=== PATIENT | male | born 1945 | race Caucasian/White ===

== ENCOUNTER 2018-09-21 13:23 | Emergency (ER) | payer MEDICARE ==
[~2018-09-21] VITALS: Ht 172.7 cm; Wt 68.2 kg
[2018-09-21 13:48] VITALS: Ht 172.7 cm; Wt 68.2 kg
--- NOTE | 2018-09-21 13:50 | ERD ---
ER Documentation Chief Complaint Chief Complaint fainted HPI The patient is a 73-year-old male, presenting to the ER because he fainted at the [facility], witnessed by people surrounding him. When EMS arrived, blood pressure was low, he was treated with 1 L normal saline, blood pressure improved and his mentation also improved. Accu-Chek was 156 per EMS. He did not remember what happened. He denies headache, neck pain, chest pain, dyspnea, abdominal pain, vomiting, dysuria, diarrhea. He used to smoke until 2 years ago. He use oxygen at home in the evening as needed Past medical history: Probable COPD and hypertension and BPH. He is not clear about his medical problems Past surgical history: He did not remember Social history/review of system: Limited due to his condition Medications Home Meds Reported Medications Albuterol Sulfate* (Ventolin HFA*) 18 Gm Hfa.aer.ad, 2 PUFF INHALATION Q4H, #1 INHALER 09/21/18 Ipratropium-Albuterol (Ipratropium-Albuterol) 0.5-3 Mg/3 Ml Ampul.neb, 3 ML INHALATION Q6, #30 VIAL 09/21/18 Ondansetron Hcl* (Zofran*) 4 Mg Tab, 4 MG PO NEEDED PRN for NAUSEA AND OR VOMITING, TAB 09/21/18 Prednisone* (Prednisone*) 10 Mg Tab, 10 MG PO DAILY, TAB 09/21/18 Amlodipine Besylate* (Norvasc*) 5 Mg Tablet, 5 MG PO BID, TAB 09/21/18 Valsartan* (Diovan*) 320 Mg Tablet, 320 MG PO DAILY, TAB 09/21/18 Tamsulosin Hcl* (Flomax*) 0.4 Mg Cap.er.24h, 0.8 MG PO HS, CAP 09/21/18 Dutasteride* (Avodart*) 0.5 Mg Capsule, 0.5 MG PO DAILY, CAP 09/21/18 Aspirin* (Aspirin* EC) 81 Mg Tablet.dr, 81 MG PO DAILY, TAB 09/21/18 Carvedilol* (Carvedilol*) 12.5 Mg Tablet, 6.25 MG PO DAILY, #60 TAB 09/21/18 Allergies Allergies: Coded Allergies: No Known Allergy (Unverified , 09/21/18) Physical Exam Vitals Vital Signs Date Temp Pulse Resp B/P (MAP) Pulse Ox O2 O2 Flow FiO2 Time Delivery Rate 09/21/18 98.7 80 18 111/65 98 13:48 (80) Physical Exam Const: No acute distress. Head: Atraumatic. Eyes: Normal Conjunctiva. ENT: Normal External Ears, Nose and Mouth. Neck: Full range of motion. No meningismus. Resp: Clear to auscultation bilaterally. Cardio: Regular rate and rhythm. Abd: Soft, non distended, normal bowel sounds, non tender. Skin: No petechiae or rashes. Back: No midline or flank tenderness. Ext: No cyanosis, or edema. Neur: Awake and alert. No focal deficit Psych: Normal Mood and Affect. Result Diagram: 09/21/18 1436 09/21/18 1438 Results 24 hrs Laboratory Tests Test 09/21/18 14:06 09/21/18 14:36 09/21/18 14:38 Bedside Glucose 117 mg/dL White Blood Count 5.4 10^3/ul Red Blood Count 3.22 10^6/ul Hemoglobin 10.4 g/dl Hematocrit 29.5 % Mean Corpuscular Volume 91.6 fl Mean Corpuscular Hemoglobin 32.3 pg Mean Corpuscular 35.3 g/dl Hemoglobin Concent Red Cell Distribution Width 11.1 % Platelet Count 283 10^3/UL Mean Platelet Volume 8.5 fl Immature Granulocytes % 0.400 % Neutrophils % 77.8 % Lymphocytes % 10.5 % Monocytes % 8.9 % Eosinophils % 2.0 % Basophils % 0.4 % Nucleated Red Blood Cells % 0.0 /100WBC Immature Granulocytes # 0.020 10^3/ul Neutrophils # 4.2 10^3/ul Lymphocytes # 0.6 10^3/ul Monocytes # 0.5 10^3/ul Eosinophils # 0.1 10^3/ul Basophils # 0.0 10^3/ul Nucleated Red Blood Cells # 0.0 10^3/ul Sodium Level 125 mmol/L Potassium Level 3.9 mmol/L Chloride Level 88 mmol/L Carbon Dioxide Level 28 mmol/L Anion Gap 9 Blood Urea Nitrogen 9 mg/dl Creatinine 0.78 mg/dl Est Glomerular Filtrat mL/min Rate mL/min Glucose Level 113 mg/dl Calcium Level 8.6 mg/dl Troponin I < 0.012 ng/ml Procedures/[facility] [address] [address] [address] Radiology Main Line: [phone] DIAGNOSTIC IMAGING REPORT Patient: JUNIE DIETZ : 1945 Age: 73 Sex: M MR #: [id number] DOS: 09/21/18 1400 Ordering MD: JACQUELIN COMER MD Location: E/R Room/Bed: PROCEDURE: CT Brain without contrast. CLINICAL INDICATION: Syncope. TECHNIQUE: A CT of the brain without contrast was performed utilizing axial sections from the skull base through the vertex. One or more the following does reduction techniques were utilized: Automated exposure control, adjustment of the mA/ or kV according to patient's size, or use of iterative reconstruction technique. Total exam CTDIvol is 39 MGy and DLP is 634 mGy-cm. DICOM images are available. COMPARISON: None available. FINDINGS: The ventricles and sulci are mildly to moderately prominent indicative of volume loss. There is mild cerebellar volume loss. There is no intracranial hemorrhage, mass effect or midline shift. No abnormal intra-axial or extra- axial fluid collections are seen. The coppola/white matter differentiation is well preserved. There are mild to moderate scattered foci of hypoattenuation in the periventricular, deep, and subcortical white matter, which are nonspecific in etiology but likely reflect chronic small vessel ischemic changes. There are mild to moderate intracranial vascular calcifications consistent with atherosclerosis. The visualized paranasal sinuses demonstrate minimal scattered mucosal thickening. The mastoid air cells are essentially clear. There is thinning of bilateral lens indicative of prior lens replacement. IMPRESSION: 1. No acute intracranial hemorrhage, transcortical infarction or mass effect. 2. Mild to moderate intracranial atherosclerosis and chronic small vessel ischemic changes. 3. Mild to moderate generalized cerebral volume loss. RPTAT: HH .Oswald Corrales MD, MD Date Time Electronically viewed and signed by .Oswald Corrales MD, MD on 09/21/2018 14:42 .N/ CC: JACQUELIN COMER MD [id number] EKG: Read by emergency physician Rate/Rhythm: Normal Sinus Rhythm 81 beats/min QRS, ST, T-waves: No ST elevation, no T inversion, LAD, low voltage QRS, artifacts Impression: Abnormal EKG MEDICAL MAKING DECISION: The patient is a 73-year-old male, presenting with acute syncope, acute dehydration, acute hyponatremia. He remained stable emergency department the differential diagnoses considered include but are not limited to SIADH, hypothyroidism, electrolyte imbalance, arrhythmogenic right ventricular dysplasia, Brugada syndrome, left ventricular hypertrophy, pulmonary embolism, QT abnormality, Mnft-Texrvwcff-Sehig. Departure Diagnosis: Primary Impression: Syncope Additional Impressions: Hyponatremia Anemia Condition: Stable Comments I discussed the findings with the patient. I discussed the patient with Dr. Guido at 3:25 PM, who was made aware of the lab, the treatment, the patient condition. The patient is admitted to Tel Obs Disclaimer: Inadvertent spelling and grammatical errors are likely due to EHR/dictation software use and do not reflect on the overall quality of patient care. Also, please note that the electronic time recorded on this note does not necessarily reflect the actual time of the patient encounter. However the patient did not want to stay in the hospital The patient signed out AGAINST MEDICAL ADVICE. Risks, benefits, alternatives were explained to the patient. Risks include but not limited to and permanent disability Disclaimer: Inadvertent spelling and grammatical errors are likely due to E HR/dictation software use and do not reflect on the overall quality of patient care. Also, please note that the electronic time recorded on this note does not necessarily reflect the actual time of the patient encounter. JACQUELIN COMER MD Sep 21, 2018 13:50
[2018-09-21] MEDS ORDERED: ASPI-817 PO (15:27)
[2018-09-21] MEDS ORDERED: CARV12.579 PO (15:27)
[2018-09-21] MEDS ORDERED: DUTA0.5C PO (15:28)
[2018-09-21] MEDS ORDERED: TAMS-14 PO (15:28)
[2018-09-21] MEDS ORDERED: VALS320T2 PO (15:29)
[2018-09-21] MEDS ORDERED: AMLO5TAB4 PO (15:29)
[2018-09-21] MEDS ORDERED: ONDA4TAB13 PO (15:30)
[2018-09-21] MEDS ORDERED: IPRA3AMP29 INHALATION (15:30)
[2018-09-21] MEDS ORDERED: PRED10TA PO (15:30)
[2018-09-21] MEDS ORDERED: ALBU18HF INHALATION (15:31)
[2018-09-21] MEDS ORDERED: ALBUTEROL 0.083% (NEB) 2.5 MG/3 ML AMP HHN PRN (17:00)
[2018-09-21] MEDS ORDERED: NACL 0.9% 3 ML SYG IV SCH (17:30)
[2018-09-21] MEDS ORDERED: ACETAMINOPHEN 325 MG TAB PO PRN (17:30)
[2018-09-21] MEDS ORDERED: ONDANSETRON 4 MG INJ IV PRN (17:30)
--- NOTE | 2018-09-21 17:50 | HP ---
Date/Time of Note Date/Time of Note DATE: 09/21/18 TIME: 17:35 Assessment/Plan VTE Prophylaxis SCD applied (from Nsg): Yes Pharmacological prophylaxis: NA/contraindicated Pharm contraindication: low risk/ambulating Lines/Catheters IV Catheter Type (from Nrsg): Saline Lock Assessment/Plan Assessment/Plan 1. Acute hypovolemic hyponatremia - Pt has mild hyponatremia with Na 125. He admits to poor hydration and recent ER visit to [facility] for dehydration - will start on NS and encourage PO hydration - no new neurological symptoms appreciated per daughter. Is forgetful but has been worsening - monitor Na levels 2. Syncopal episode - most likely secondary to dehydration and confined space - will check ECHO - orthostatic vitals - PT/OT - CT head negative for acute changes 3. BPH - will continue home medications 4. HTN - continue hold home medications at this time and monitor orthostatics. Will resume once stable 5. ETOH use - counseled to cut down on etoh intake 6. Disposition - Admit to telemetry for treatment of acute dehydration and for syncopal workup Result Diagram: 09/21/18 1436 09/21/18 1438 Results 24hrs Laboratory Tests Test 09/21/18 14:06 09/21/18 14:36 09/21/18 14:38 Bedside Glucose 117 White Blood Count 5.4 Red Blood Count 3.22 L Hemoglobin 10.4 L Hematocrit 29.5 L Mean Corpuscular Volume 91.6 Mean Corpuscular Hemoglobin 32.3 Mean Corpuscular Hemoglobin Concent 35.3 Red Cell Distribution Width 11.1 L Platelet Count 283 Mean Platelet Volume 8.5 Immature Granulocytes % 0.400 Neutrophils % 77.8 H Lymphocytes % 10.5 L Monocytes % 8.9 Eosinophils % 2.0 Basophils % 0.4 Nucleated Red Blood Cells % 0.0 Immature Granulocytes # 0.020 Neutrophils # 4.2 Lymphocytes # 0.6 L Monocytes # 0.5 Eosinophils # 0.1 Basophils # 0.0 Nucleated Red Blood Cells # 0.0 Sodium Level 125 L Potassium Level 3.9 Chloride Level 88 L Carbon Dioxide Level 28 Anion Gap 9 Blood Urea Nitrogen 9 Creatinine 0.78 Est Glomerular Filtrat Rate mL/min Glucose Level 113 Calcium Level 8.6 Troponin I < 0.012 HPI/ROS Admit Date/Time Admit Date/Time 09/21/18 Hx of Present Illness 73 yo M with PMH HTN and BPH presented to ED via EMS after syncopal episode at the [facility]. Patient states he was at the [facility] and was feeling very overwhelmed since it was very crowded and hot. He states he crouched down and someone brought him a chair to sit in. He does not remember events leading up to syncopal episode and does not remember if he did lose consciousness. Patient denies any chest pain, shortness of breath, nausea, vomiting, dizziness, abdominal pain, or urinary issues. Patient does admit to diarrhea lately and taken Imodium but has not "kicked in" yet. Daughter at bedside and states patient has been more forgetful lately. He was seen at [facility] for dehydration a week ago and states he was told to drink more Gatorade. Per Daughter he has was supposed to hydrate with water. Also admits to patient drinking 2 beers during the day and watered down wine at night. He was told by his PCP to cut down on his drinking. He is a former smoker and on O2 continuously. Also uses Nebs PRN for SOB. ROS All 12 systems reviewed and pertinent positives as per HPI. All others negative. Constitutional: No fatigue Eyes: No discharge ENT: No congestion Respiratory: No cough, No shortness of breath, No sputum, No wheezing Cardiovascular: No chest pain, No lightheadedness, No palpitations Gastrointestinal: diarrhea; No pain, No constipation, No nausea Genitourinary: no complaints Musculoskeletal: no complaints Skin: No laceration, No rash Neurologic: confusion, syncope; No dizziness, No focal-weakness, No headache Endocrine: no complaints Lymphatic: no complaints Psychological: nl mood/affect Immunologic: no complaints PMH/Family/Social Past Medical History Medical History: hypertension, other (BPH) Medications Current Medications Amlodipine Besylate (Norvasc) 5 mg BID PO ; Start 09/21/18 at 21:00 Aspirin (Halfprin) 81 mg DAILY PO ; Start 09/22/18 at 09:00 Carvedilol (Coreg) 6.25 mg DAILY PO ; Start 09/22/18 at 09:00 Dutasteride (Avodart) 0.5 mg DAILY PO ; Start 09/22/18 at 09:00 Albuterol/ Ipratropium (Duoneb) 3 ml Q6HWA RESP THERAPY NEB ; Start 09/21/18 at 20:00 Tamsulosin HCl (Flomax) 0.8 mg HS PO ; Start 09/21/18 at 21:00 Miscellaneous Information 320 mg DAILY PO ; Start 09/22/18 at 09:00; Status UNV Albuterol (Proventil 0.083% (Neb)) 2.5 mg Q2H RESP THERAPY PRN HHN SHORTNESS OF BREATH; Start 09/21/18 at 17:00 Coded Allergies: No Known Allergy (Unverified , 09/21/18) Past Surgical History Past Surgical Hx: no surgical history Family History Significant Family History: no pertinent family hx Social History Alcohol Use: occasionally Smoking Status: Former smoker Drug Use: none Exam/Review of Systems Vital Signs Vitals Vital Signs Date Temp Pulse Resp B/P (MAP) Pulse Ox O2 O2 Flow FiO2 Time Delivery Rate 09/21/18 98.7 80 18 111/65 98 13:48 (80) Exam Exam General: Patient is a pleasant male currently sitting upright in bed in no acute distress HEENT: Atraumatic, normocephalic. The pupils are equal, round and reactive. Extraocular motor are intact Neck: Supple with full range of motion. No rigidity or meningismus Chest: Nontender Lungs: Clear to auscultation bilaterally. no wheezing or rhonchi Heart: Normal S1-S2, Regular rhythm and rate. No murmur, S3, or S4 Abdomen: Soft , nontender, nondistended , bowel sounds are present. No guarding no rebound tenderness , No masses or organomegaly. No costovertebral temporal angle mass Extremities: no edema, cyanosis, or clubbing. moving all extremities Neurologic: Normal mental status, speech normal, cranial nerves II through XII are intact, motor and sensory are intact, Additional Comments Home medications reviewed PROCEDURE: CT Brain without contrast. CLINICAL INDICATION: Syncope. TECHNIQUE: A CT of the brain without contrast was performed utilizing axial sections from the skull base through the vertex. One or more the following does reduction techniques were utilized: Automated exposure control, adjustment of the mA/ or kV according to patient's size, or use of iterative reconstruction technique. Total exam CTDIvol is 39 MGy and DLP is 634 mGy-cm. DICOM images are available. COMPARISON: None available. FINDINGS: The ventricles and sulci are mildly to moderately prominent indicative of volume loss. There is mild cerebellar volume loss. There is no intracranial hemorrhage, mass effect or midline shift. No abnormal intra-axial or extra- axial fluid collections are seen. The coppola/white matter differentiation is well preserved. There are mild to moderate scattered foci of hypoattenuation in the periventricular, deep, and subcortical white matter, which are nonspecific in etiology but likely reflect chronic small vessel ischemic changes. There are mild to moderate intracranial vascular calcifications consistent with athero sclerosis. The visualized paranasal sinuses demonstrate minimal scattered mucosal thickening. The mastoid air cells are essentially clear. There is thinning of bilateral lens indicative of prior lens replacement. IMPRESSION: 1. No acute intracranial hemorrhage, transcortical infarction or mass effect. 2. Mild to moderate intracranial atherosclerosis and chronic small vessel ischemic changes. 3. Mild to moderate generalized cerebral volume loss. RPTAT: HH .Oswald Corrales MD, MD Date Time Electronically viewed and signed by .Oswald Corrales MD, MD on 09/21/2018 14:42 PINA MATHEW MD Sep 21, 2018 17:50
[2018-09-21] MEDS: SOD CHLORIDE 0.9% 1,000 ML IV SCH (17:58)
[2018-09-21] MEDS ORDERED: LORAZEPAM 2 MG INJ IV PRN (18:00)
[2018-09-21] MEDS: LACTOBACILLUS RHAMNOSUS CAP PO SCH (18:55)
[2018-09-21] MEDS ORDERED: ALBUTEROL/IPRATROPIUM (NEB) 3 ML AMP NEB PRN (20:00)
[2018-09-21] MEDS ORDERED: ALBUTEROL/IPRATROPIUM (NEB) 3 ML AMP NEB SCH (20:00)
[2018-09-21] MEDS: AMLODIPINE 5 MG TAB PO SCH (20:38)
[2018-09-21] MEDS ORDERED: TAMSULOSIN (SR) 0.4 MG CAP PO SCH (21:00)
[2018-09-22] MEDS: SOD CHLORIDE 0.9% 1,000 ML IV SCH (03:01)
[2018-09-22] MEDS: LACTOBACILLUS RHAMNOSUS CAP PO SCH ×2 (07:46→11:22)
[2018-09-22] MEDS ORDERED: ASPIRIN (EC) 81 MG TAB PO SCH (09:00)
[2018-09-22] MEDS ORDERED: LOSARTAN 50 MG TAB PO SCH (09:00)
[2018-09-22] MEDS ORDERED: DUTASTERIDE 0.5 MG CAP PO SCH ×2 (09:00)
[2018-09-22] MEDS ORDERED: NON-FORMULARY/PATIENT OWN MED (Valsartan* (Diovan*) 320 MG) PO SCH (09:00)
[2018-09-22] MEDS ORDERED: POTASSIUM CHLORIDE (SR) 20 MEQ TAB PO STA (09:11)
[2018-09-22] MEDS ORDERED: MAGNESIUM SULFATE 2 GM/50 ML 50 ML IVPB ONE (09:30)
[2018-09-22] MEDS: AMLODIPINE 5 MG TAB PO SCH (10:47)
--- NOTE | 2018-09-22 13:40 | RADRPT ---
Echocardiogram Report Patient Name: JUNIE DIETZPatient ID: [id number] : 1945 (73y 3m)Study Date: 09/22/2018 7:23:59 AM Gender: MAccession #: [id number] Tech: Amado Melgar RDCS Location: [facility] Ref.Physician: PINA MATHEW Height(Cm): BSA: Weight(Kg): Quality: AdequateOrder Physician: PINA MATHEW Account #: Procedures: Echocardiographic Report: Transthoracic echocardiogram with complete 2D, M-Mode, and doppler examination. Indications: Evaluate Left Ventricular function, and Syncope. Measurements: 2D/M Mode Doppler Measurement Value Normal Range Measurement Value Normal Range LVIDd 2D 4.2 [ 4.2 - 5.8 ] cm AV Peak Andrew 1.2 [ 100.0 - 170.0 ] cm/sec LVIDs 2D 2.5 [ 2.5 - 4.0 ] cm AV Peak PG 6.0 [ 2.0 - 9.0 ] mmHg LVPWd 2D 1.0 [ 0.6 - 1.0 ] cm LVOT Peak Andrew 0.8 [ 70.0 - 110.0 ] cm/sec IVSd 2D 0.9 [ 0.6 - 1.0 ] cm LVOT Peak PG 3.0 [ 2.0 - 6.0 ] mmHg AoR Diam 2D 3.1 [ 2.6 - 3.4 ] cm MV E Peak Andrew 0.5 [ 60.0 - 130.0 ] cm/sec EDV 2D 76.4 [ 62.0 - 150.0 ] ml MV A Peak Andrew 0.6 [ 100.0 - 120.0 ] cm/sec ESV 2D 22.5 [ 21.0 - 61.0 ] ml MV E/A 0.8 [ 0.8 - 1.5 ] ratio EF 2D 70.5 [ 52.0 - 72.0 ] percent MV Decel Time 120 [ 104 - 258 ] msec LA Dimen 2D 2.6 [ 3.0 - 4.0 ] cm Lat E` Andrew 0.1 [ 10.0 - 15.0 ] cm/sec Lateral E/E` 4.9 [ 1.0 - 2.0 ] ratio MV E/A 0.8 [ 0.8 - 1.5 ] ratio TR Peak Andrew 2.7 [ 100.0 - 280.0 ] cm/sec TR Peak PG 29.0 mmHg RVSP 32.0 [ 10.0 - 36.0 ] mmHg RA Pressure 3.0 mmHg Findings: Left Ventricle: Normal left ventricular systolic function. Normal left ventricular cavity size. Normal left ventricular wall thickness. Ejection fraction is visually estimated at 65 %. Tissue Doppler/Mitral Doppler indices are consistent with impaired relaxation (Stage I diastolic dysfunction). Right Ventricle: Normal right ventricular size. Normal right ventricular systolic function. Left Atrium: There is mild enlargement of left atrium. Right Atrium: The right atrium is normal in size. Mitral Valve: Normal appearance and function of the mitral valve with trace physiologic regurgitation. Aortic Valve: Normal appearance of the aortic valve. No significant aortic stenosis or insufficiency. Tricuspid Valve: Normal appearance of the tricuspid valve. The estimated Peak RVSP is 32 mmHg. There is trace tricuspid regurgitation. Pulmonic Valve: Pulmonic valve not well visualized. Pericardium: Trivial pericardial effusion. Aorta: Normal aortic root. IVC: Normal size and normal respiratory collapse consistent with normal right atrial pressure. Conclusions: Normal left ventricular systolic function. Normal left ventricular cavity size. Normal left ventricular wall thickness. Ejection fraction is visually estimated at 65 %. Tissue Doppler/Mitral Doppler indices are consistent with impaired relaxation (Stage I diastolic dysfunction). No significant valvular stenosis or regurgitation seen. The estimated Peak RVSP is 32 mmHg. Normal size and normal respiratory collapse consistent with normal right atrial pressure. Electronically Signed By: Aristides Caro 2018-09-22 13:39:06 PDT
--- NOTE | 2018-09-22 14:09 | PN ---
Date/Time of Note Date/Time of Note DATE: 09/22/18 TIME: 14:07 Assessment/Plan VTE Prophylaxis SCD applied (from Nsg): Yes Pharmacological prophylaxis: NA/contraindicated Pharm contraindication: low risk/ambulating Lines/Catheters IV Catheter Type (from Nrsg): Saline Lock Assessment/Plan Assessment/Plan 1. Acute hypovolemic hyponatremia- resolving - improving with IV hydration and encouraged PO intake - no new neurological symptoms 2. Syncopal episode - most likely secondary to dehydration and confined space - ECHO results noted - PT/OT - CT head negative for acute changes 3. BPH - will continue home medications 4. HTN - continue home medications 5. ETOH use - counseled to cut down on etoh intake 6. Disposition - Medically stable for discharge home. Result Diagram: 09/22/1852809/22/18528 Results 24hrs Laboratory Tests Test 09/21/18 14:36 09/21/18 14:38 09/22/18 05:29 White Blood Count 5.4 4.0 #L Red Blood Count 3.22 L 2.96 L Hemoglobin 10.4 L 9.4 L Hematocrit 29.5 L 26.3 L Mean Corpuscular Volume 91.6 88.9 Mean Corpuscular Hemoglobin 32.3 31.8 Mean Corpuscular Hemoglobin Concent 35.3 35.7 Red Cell Distribution Width 11.1 L 10.9 L Platelet Count 283 252 Mean Platelet Volume 8.5 8.7 Immature Granulocytes % 0.400 0.200 Neutrophils % 77.8 H 58.4 Lymphocytes % 10.5 L 21.3 Monocytes % 8.9 13.9 H Eosinophils % 2.0 5.5 Basophils % 0.4 0.7 Nucleated Red Blood Cells % 0.0 0.0 Immature Granulocytes # 0.020 0.010 Neutrophils # 4.2 2.4 Lymphocytes # 0.6 L 0.9 Monocytes # 0.5 0.6 Eosinophils # 0.1 0.2 Basophils # 0.0 0.0 Nucleated Red Blood Cells # 0.0 0.0 Sodium Level 125 L 131 L Potassium Level 3.9 3.3 L Chloride Level 88 L 96 L Carbon Dioxide Level 28 29 Anion Gap 9 6 Blood Urea Nitrogen 9 8 Creatinine 0.78 0.67 Est Glomerular Filtrat Rate mL/min Glucose Level 113 98 Hemoglobin A1c 4.9 Calcium Level 8.6 8.6 Iron Level 135 Total Iron Binding Capacity 245 Percent Iron Saturation 55 H Troponin I < 0.012 Thyroid Stimulating Hormone (TSH) 1.110 Magnesium Level 1.7 Subjective 24 Hr Interval Summary Free Text/Dictation Patient states he's feeling better and ambulating without any issues. No acute overnight events. Exam/Review of Systems Exam Vitals Vital Signs Date Temp Pulse Resp B/P (MAP) Pulse Ox O2 O2 Flow FiO2 Time Delivery Rate 09/22/18 98.0 88 18 102/67 98 Nasal 2.0 11:47 (79) Cannula Intake and Output 09/21/18 09/21/18 09/22/18 1515:00 23:00 07:00 OutputOutput Total 1200 ml BalanceBalance -1200 ml Exam General: Patient is a pleasant male currently sitting upright in bed in no acute distress Neck: Supple Chest: Nontender Lungs: Clear to auscultation bilaterally. no wheezing or rhonchi Heart: Normal S1-S2, Regular rhythm and rate. No murmur, S3, or S4 Abdomen: Soft , nontender, nondistended , bowel sounds are present. No guarding no rebound tenderness Extremities: no edema, cyanosis, or clubbing. moving all extremities Results Results 24hrs Laboratory Tests Test 09/21/18 14:36 09/21/18 14:38 09/22/18 05:29 White Blood Count 5.4 4.0 #L Red Blood Count 3.22 L 2.96 L Hemoglobin 10.4 L 9.4 L Hematocrit 29.5 L 26.3 L Mean Corpuscular Volume 91.6 88.9 Mean Corpuscular Hemoglobin 32.3 31.8 Mean Corpuscular Hemoglobin Concent 35.3 35.7 Red Cell Distribution Width 11.1 L 10.9 L Platelet Count 283 252 Mean Platelet Volume 8.5 8.7 Immature Granulocytes % 0.400 0.200 Neutrophils % 77.8 H 58.4 Lymphocytes % 10.5 L 21.3 Monocytes % 8.9 13.9 H Eosinophils % 2.0 5.5 Basophils % 0.4 0.7 Nucleated Red Blood Cells % 0.0 0.0 Immature Granulocytes # 0.020 0.010 Neutrophils # 4.2 2.4 Lymphocytes # 0.6 L 0.9 Monocytes # 0.5 0.6 Eosinophils # 0.1 0.2 Basophils # 0.0 0.0 Nucleated Red Blood Cells # 0.0 0.0 Sodium Level 125 L 131 L Potassium Level 3.9 3.3 L Chloride Level 88 L 96 L Carbon Dioxide Level 28 29 Anion Gap 9 6 Blood Urea Nitrogen 9 8 Creatinine 0.78 0.67 Est Glomerular Filtrat Rate mL/min Glucose Level 113 98 Hemoglobin A1c 4.9 Calcium Level 8.6 8.6 Iron Level 135 Total Iron Binding Capacity 245 Percent Iron Saturation 55 H Troponin I < 0.012 Thyroid Stimulating Hormone (TSH) 1.110 Magnesium Level 1.7 Medications Medication Current Medications Amlodipine Besylate (Norvasc) 5 mg BID PO Last administered on 09/22/18 10:47; Admin Dose 5 MG; Start 09/21/18 at 21:00 Aspirin (Halfprin) 81 mg DAILY PO Last administered on 09/22/18 10:44; Admin Dose 81 MG; Start 09/22/18 at 09:00 Carvedilol (Coreg) 6.25 mg DAILY PO Last administered on 09/22/18 10:46; Admin Dose 6.25 MG; Start 09/22/18 at 09:00 Tamsulosin HCl (Flomax) 0.8 mg HS PO Last administered on 09/21/18 20:38; Admin Dose 0.8 MG; Start 09/21/18 at 21:00 Albuterol (Proventil 0.083% (Neb)) 2.5 mg Q2H RESP THERAPY PRN HHN SHORTNESS OF BREATH; Start 09/21/18 at 17:00 Sodium Chloride 1,000 ml @ 100 mls/hr Q10H IV Last administered on 09/22/18at 03:01; Admin Dose 100 MLS/HR; Start 09/21/18 at 17:28 IV Flush (NS 3 ml) 3 ml PER PROTOCOL IV ; Start 09/21/18 at 17:30 Ondansetron HCl (Zofran Inj) 4 mg Q6H PRN IV NAUSEA/VOMITING; Start 09/21/18 at 17:30 Acetaminophen (Tylenol Tab) 650 mg Q6H PRN PO .PAIN 1-3 OR TEMP; Start 09/21/18 at 17:30 Lactobacillus Acidophilus/ Rhamnosus (Culturelle) 1 cap WITH MEALS PO Last administered on 09/21/18 18:55; Admin Dose 1 CAP; Start 09/21/18 at 18:00 Albuterol/ Ipratropium (Duoneb) 3 ml Q6H PRN NEB wheezing; Start 09/21/18 at 20:00 Lorazepam (Ativan) 1 mg Q4 PRN IV anxiety or withdrawal Last administered on 09/22/18at 00:37; Admin Dose 1 MG; Start 09/21/18 at 18:00 Dutasteride (Avodart) 0.5 mg QHS PO Last administered on 09/22/18at 10:47; Admin Dose 0.5 MG; Start 09/22/18 at 09:00 Losartan Potassium (Cozaar) 100 mg DAILY PO Last administered on 09/22/18at 10:46; Admin Dose 100 MG; Start 09/22/18 at 09:00 PINA MATHEW MD Sep 22, 2018 14:09
--- NOTE | 2018-09-22 14:14 | PDOCDIS ---
Discharge Instructions DIAGNOSIS Discharge Diagnosis 1. Acute hypovolemic hyponatremia, secondary to dehydration 2. Syncopal episode 3. BPH 4. HTN 5. ETOH use CONDITION [id number] Patient Condition: [id number] Stable HOME CARE INSTRUCTIONS: [id number] Diet Instructions: [id number] Low Fat /Cholesterol [id number] Your diet recommendation is: [id number] increase hydration with water ACTIVITY: [id number] Activity Restrictions: Sdrss2q No Restrictions FOLLOW UP/APPOINTMENTS Follow-up Plan 1. Follow up with your primary care physician in 1-2 weeks 2. It is important to keep well hydrated with water. If you would like to drink fluids with some flavor, i recommend you add flavoring to your water or you can have sparkling water with flavorings. It is best to avoid all alcoholic beverages since they do contribute to dehydration 3. Continue taking all medications as prescribed. It is best to keep a journal of your daily blood pressure readings to see if you can be weaned down/off some of your blood pressure medications to prevent low blood pressure episodes 4. Your ECHO results showed no acute structural abnormalities and your heart is pumping well 5. If experiencing any concerning symptoms, please go to your closest emergency department PINA MATHEW MD Sep 22, 2018 14:14
[2018-09-22 15:15] VITALS: BP 130/84; PULSE 86; RESP 18
--- NOTE | 2018-09-22 18:30 | DS ---
Date/Time of Note Date/Time of Note DATE: 09/22/18 TIME: 18:30 Discharge Summary Admission/Discharge Info Admit Date/Time 09/21/18 Discharge Date/Time 09/22/18 Discharge Diagnosis 1. Acute hypovolemic hyponatremia, secondary to dehydration 2. Syncopal episode 3. BPH 4. HTN 5. ETOH use Patient Condition: Stable Hx of Present Illness 73 yo M with PMH HTN and BPH presented to ED via EMS after syncopal episode at the [facility]. Patient states he was at the [facility] and was feeling very overwhelmed since it was very crowded and hot. He states he crouched down and someone brought him a chair to sit in. He does not remember events leading up to syncopal episode and does not remember if he did lose consciousness. Patient denies any chest pain, shortness of breath, nausea, vomiting, dizziness, abdominal pain, or urinary issues. Patient does admit to diarrhea lately and taken Imodium but has not "kicked in" yet. Daughter at bedside and states patient has been more forgetful lately. He was seen at [facility] for dehydration a week ago and states he was told to drink more Gatorade. Per Daughter he has was supposed to hydrate with water. Also admits to patient drinking 2 beers during the day and watered down wine at night. He was told by his PCP to cut down on his drinking. He is a former smoker and on O2 continuously. Also uses Nebs PRN for SOB. Hospital Course Patient was monitored overnight and provided IVF given acute dehydration. ECHO was performed with no acute structural abnormalities and preserved ejection fraction. Patients vitals remained stable and sodium levels trended upwards. Patient was able to ambulate without any dizziness or lightheadedness. He was counseled about cutting down on alcohol intake and increasing water hydration. Patients presenting symptoms improved and patient was discharged home in good condition. Home Meds Reported Medications Albuterol Sulfate* (Ventolin HFA*) 18 Gm Hfa.aer.ad, 2 PUFF INHALATION Q4H, #1 INHALER 09/21/18 Ipratropium-Albuterol (Ipratropium-Albuterol) 0.5-3 Mg/3 Ml Ampul.neb, 3 ML INHALATION Q6, #30 VIAL 09/21/18 Ondansetron Hcl* (Zofran*) 4 Mg Tab, 4 MG PO NEEDED PRN for NAUSEA AND OR VOMITING, TAB 09/21/18 Prednisone* (Prednisone*) 10 Mg Tab, 10 MG PO DAILY, TAB 09/21/18 Amlodipine Besylate* (Norvasc*) 5 Mg Tablet, 5 MG PO BID, TAB 09/21/18 Valsartan* (Diovan*) 320 Mg Tablet, 320 MG PO DAILY, TAB 09/21/18 Tamsulosin Hcl* (Flomax*) 0.4 Mg Cap.er.24h, 0.8 MG PO HS, CAP 09/21/18 Dutasteride* (Avodart*) 0.5 Mg Capsule, 0.5 MG PO DAILY, CAP 09/21/18 Aspirin* (Aspirin* EC) 81 Mg Tablet.dr, 81 MG PO DAILY, TAB 09/21/18 Carvedilol* (Carvedilol*) 12.5 Mg Tablet, 6.25 MG PO DAILY, #60 TAB 09/21/18 Follow-up Plan 1. Follow up with your primary care physician in 1-2 weeks 2. It is important to keep well hydrated with water. If you would like to drink fluids with some flavor, i recommend you add flavoring to your water or you can have sparkling water with flavorings. It is best to avoid all alcoholic beverages since they do contribute to dehydration 3. Continue taking all medications as prescribed. It is best to keep a journal of your daily blood pressure readings to see if you can be weaned down/off some of your blood pressure medications to prevent low blood pressure episodes 4. Your ECHO results showed no acute structural abnormalities and your heart is pumping well 5. If experiencing any concerning symptoms, please go to your closest emergency department Primary Care Provider Care Physician No Primary Time spent on discharge: > 30 minutes Pending Labs Laboratory Tests Test 09/22/18 05:29 White Blood Count 4.0 10^3/ul (4.8-10.8) Red Blood Count 2.96 10^6/ul (4.70-6.10) Hemoglobin 9.4 g/dl (14.0-18.0) Hematocrit 26.3 % (42.0-52.0) Mean Corpuscular Volume 88.9 fl (82.0-101.0) Mean Corpuscular Hemoglobin 31.8 pg (29.0-33.0) Mean Corpuscular Hemoglobin Concent 35.7 g/dl (32.0-37.0) Red Cell Distribution Width 10.9 % (11.5-14.5) Platelet Count 252 10^3/UL (140-415) Mean Platelet Volume 8.7 fl (7.4-10.4) Immature Granulocytes % 0.200 % (0.001-0.429) Neutrophils % 58.4 % (39.0-77.0) Lymphocytes % 21.3 % (15.0-51.0) Monocytes % 13.9 % (0.0-11.0) Eosinophils % 5.5 % (0.0-7.0) Basophils % 0.7 % (0.0-2.0) Nucleated Red Blood Cells % 0.0 /100WBC (0.0-0.0) Immature Granulocytes # 0.010 10^3/ul (0.0-0.031) Neutrophils # 2.4 10^3/ul (1.6-7.5) Lymphocytes # 0.9 10^3/ul (0.8-2.9) Monocytes # 0.6 10^3/ul (0.3-0.9) Eosinophils # 0.2 10^3/ul (0.0-0.5) Basophils # 0.0 10^3/ul (0.0-0.1) Nucleated Red Blood Cells # 0.0 10^3/ul (0.0-0.0) Sodium Level 131 mmol/L (135-144) Potassium Level 3.3 mmol/L (3.5-5.1) Chloride Level 96 mmol/L (97-110) Carbon Dioxide Level 29 mmol/L (21-31) Anion Gap 6 (5-13) Blood Urea Nitrogen 8 mg/dl (7-20) Creatinine 0.67 mg/dl (0.61-1.24) Est Glomerular Filtrat Rate mL/min mL/min (>60) Glucose Level 98 mg/dl (70-220) Calcium Level 8.6 mg/dl (8.4-10.2) Magnesium Level 1.7 mg/dl (1.7-2.5) PINA MATHEW MD Sep 22, 2018 18:30
== END 2018-09-22 15:15 | disposition left against medical advice (07) ==
LOC: E/R 13:23 → CANBEDREQ 09-22 16:46
DX: E87.1 Hypo-osmolality and hyponatremia (principal); D64.9 Anemia, unspecified; I10 Essential (primary) hypertension; Z79.82 Long term (current) use of aspirin
CPT/HCPCS: 70450; 80048; 82962; 83036; 83540; 83735; 84443; 84484; 85025; 93005; 93306; J2060; J3475; J7030; 36415; 96374; 96375